=== PATIENT | male | born 1950 | race Caucasian/White ===

== ENCOUNTER → 2019-11-24 | Outpatient (CLI) | payer OTHER | END | disposition home or self-care (01) | LOC: RAD 09:09 | PROVIDERS: ATTEND Radiology Diagnostic Radiology | DX: M79.641 Pain in right hand (principal) ==

== ENCOUNTER 2021-03-17 05:45 | Day surgery (SDC) | payer OTHER ==
[~2021-03-17 05:45] MED LIST: COZAAR50 MG PO; CRESTOR20 MG PO; GLIMEPIRIDE2 MG PO; GLUMETZA500 MG PO; NORVASC5 MG PO
[2021-03-17] MEDS ORDERED: TYLENOL ARTHRI650 MG PO (07:22)
[2021-03-17] MEDS ORDERED: ULTRAM50 MG PO (07:22)
[2021-03-17] MEDS ORDERED: NEURONTIN300 MG PO (07:22)
[2021-03-17] MEDS ORDERED: MIRALAX17 GM PO (07:22)
== END 2021-03-17 14:15 | disposition home or self-care (01) ==
LOC: CIR.AMB 05:45
PROVIDERS: ATTEND Surgery
DX: K40.90 Unilateral inguinal hernia, without obstruction or gangrene, not specified as recurrent (principal); Z20.822 Contact with and (suspected) exposure to COVID-19